=== PATIENT | male | born 1990 | race Hispanic/Latino ===

== ENCOUNTER 2023-09-30 00:38 | Emergency (ER) | payer BC ==
[~2023-09-30] VITALS: Ht 175.3 cm; Wt 80.7 kg
[2023-09-30] MEDS: 0.9%NACL 1000ML 1,000 ML IV ONE (00:50)
[2023-09-30] MEDS: ONDANSETRON 4MG INJ IVP ONE (00:50)
[2023-09-30] MEDS: KETOROLAC 30MG VIAL (30MG/ML) IVP ONE (00:51)
[2023-09-30 01:13] LABS: BASOPHILS # (AUTO) 0.06 K/uL (0.00-0.20); EOSINOPHILS # (AUTO) 0.38 K/uL (0.00-0.70); EOSINOPHILS % (AUTO) 6.1 % (0.0-8.0); IMMATURE GRANULOCYTE ABSOLUTE 0.02 K/uL (0-1); LYMPHOCYTES # (AUTO) 2.7 K/uL (1.0-4.8); LYMPHOCYTES % (AUTO) 43.2 % (21.0-51.0); MEAN CORPUSCULAR HEMOGLOBIN 31.1 pg (27.0-33.0); MEAN CORPUSCULAR VOLUME 94.4 fL (79-99); MONOCYTES # (AUTO) 0.5 K/uL (0.1-1.0); MONOCYTES % (AUTO) 8.1 % (3.0-13.0); NEUTROPHILS # (AUTO) 2.6 K/uL (1.8-7.7); NEUTROPHILS % (AUTO) 41.3 % (40.0-77.0); PLATELET COUNT (AUTO) 269 K/uL (130-400); RED BLOOD CELL COUNT(AUTO) 4.66 MIL/uL (4.50-6.20); RED CELL DISTRIBUTION WIDTH 12.1 % (11.0-15.5); WHITE BLOOD COUNT (AUTO) 6.2 K/uL (4.8-10.8)
[2023-09-30 01:19] LABS: APPEARANCE,URINE CLEAR (CLEAR); BILIRUBIN,URINE NEGATIVE (NEGATIVE); COLOR,URINE LIGHT-YELLOW (YELLOW); GLUCOSE, URINE (UA) NEGATIVE (NEGATIVE); KETONES,URINE NEGATIVE (NEGATIVE); LEUKOCYTE ESTERASE ,URINE NEGATIVE Leu/uL (NEGATIVE); NITRATE,URINE NEGATIVE (NEGATIVE); OCCULT BLOOD,URINE NEGATIVE (NEGATIVE); PROTEIN,URINE NEGATIVE (NEGATIVE); UROBILINOGEN,URINE 0.2 mg/dL (0.2-1.0)
[2023-09-30 01:21] LABS: ADD UA MICROSCOPIC NO
[2023-09-30 01:26] LABS: AMPHET/METH SCREEN,URINE NEGATIVE (NEGATIVE); BARBITURATE SCREEN, URINE NEGATIVE (NEGATIVE); BENZODIAZEPINES SCREEN,URINE NEGATIVE (NEGATIVE); CANNABINOID SCREEN,URINE NEGATIVE (NEGATIVE); COCAINE SCREEN,URINE NEGATIVE (NEGATIVE); OPIATE SCREEN,URINE NEGATIVE (NEGATIVE); PHENCYCLIDINE SCREEN,URINE NEGATIVE (NEGATIVE)
[2023-09-30 01:28] LABS: CARBON DIOXIDE 31 mmol/L (21-32); CHLORIDE 102 mmol/L (101-111); GLOMERULAR FILTR. RATE CALC 101 mL/min (>90); GLUCOSE,RANDOM 85 mg/dL (70-105); POTASSIUM 3.8 mmol/L (3.5-5.1); SODIUM SERUM 140 mmol/L (136-145); UREA NITROGEN, BLOOD 22 mg/dL (7-18)
[2023-09-30 01:33] LABS: ALANINE AMINOTRANSFERASE 33 U/L (12-78); ALBUMIN 4.1 g/dL (3.5-5.0); ASPARTATE AMINOTRANSFERASE 21 U/L (10-37); BILIRUBIN,TOTAL 0.3 mg/dL (0.2-1.0); TOTAL PROTEIN, SERUM 7.5 g/dL (6.0-8.3)
[2023-09-30 01:37] LABS: ALCOHOL, BLOOD < 3 mg/dL (0-10)
[2023-09-30] MEDS ORDERED: IOHEXOL-350 75 ML VIAL IV ONE (01:51)
[2023-09-30 03:12] VITALS: BP 112/62; PULSE 57; RESP 18; O2SAT 98
[2023-09-30] MEDS ORDERED: LACT1CAP81 PO (03:30)
[2023-09-30] MEDS ORDERED: DSSL PO (03:30)
== END 2023-09-30 04:11 | disposition home or self-care (01) ==
LOC: EDH 00:38
DX: R10.84 Generalized abdominal pain (principal); Z90.49 Acquired absence of other specified parts of digestive tract; Z79.899 Other long term (current) drug therapy
CPT/HCPCS: 99284; 74177; 96374; 96375; 80053; 80305; 83690; 85025; 36415; 81003; J2405; J1885; Q9967

== ENCOUNTER 2024-05-02 12:12 | Emergency (ER) | payer BC ==
[~2024-05-02] VITALS: Ht 175.3 cm; Wt 76.2 kg
[~2024-05-02 12:12] MED LIST: DSSL PO; LACT1CAP81 PO
[2024-05-02 12:14] VITALS: BP 126/77; PULSE 50; RESP 18; TEMP 97.3
[2024-05-02 12:32] LABS: BASOPHILS # (AUTO) 0.04 K/uL (0.00-0.20); BASOPHILS % (AUTO) 0.9 % (0.0-5.0); EOSINOPHILS # (AUTO) 0.31 K/uL (0.00-0.70); IMMATURE GRANULOCYTE ABSOLUTE 0.01 K/uL (0-1); LYMPHOCYTES # (AUTO) 1.5 K/uL (1.0-4.8); MEAN CORPUSCULAR HEMOGLOBIN 30.8 pg (27.0-33.0); MEAN CORPUSCULAR HGB CONC 33.6 g/dL (32.0-36.0); MEAN CORPUSCULAR VOLUME 91.7 fL (79-99); MONOCYTES # (AUTO) 0.4 K/uL (0.1-1.0); MONOCYTES % (AUTO) 8.1 % (3.0-13.0); NEUTROPHILS # (AUTO) 2.2 K/uL (1.8-7.7); NEUTROPHILS % (AUTO) 49.8 % (40.0-77.0); PLATELET COUNT (AUTO) 241 K/uL (130-400); WHITE BLOOD COUNT (AUTO) 4.4 K/uL (4.8-10.8)
[2024-05-02 12:47] LABS: CREATININE 0.9 mg/dL (0.5-1.3); POTASSIUM 3.8 mmol/L (3.5-5.1)
[2024-05-02 13:09] LABS: APPEARANCE,URINE CLEAR (CLEAR); BILIRUBIN,URINE NEGATIVE (NEGATIVE); COLOR,URINE LIGHT-YELLOW (YELLOW); GLUCOSE, URINE (UA) NEGATIVE (NEGATIVE); KETONES,URINE 5 mg/dL (NEGATIVE); LEUKOCYTE ESTERASE ,URINE NEGATIVE Leu/uL (NEGATIVE); NITRATE,URINE NEGATIVE (NEGATIVE); OCCULT BLOOD,URINE NEGATIVE (NEGATIVE); PH,URINE 6.5 (5.0-8.0); PROTEIN,URINE NEGATIVE (NEGATIVE); UROBILINOGEN,URINE 0.2 mg/dL (0.2-1.0)
[2024-05-02 13:10] LABS: ADD UA MICROSCOPIC YES
[2024-05-02 13:12] LABS: MUCUS,URINE RARE LPF (None Seen); RBC,URINE 0-1 /HPF (0-1); WBC,URINE 0-1 /HPF (0-1)
[2024-05-02] MEDS ORDERED: IOHEXOL-350 75 ML VIAL IV ONE (13:13)
[2024-05-02] MEDS: ketOROlac 15MG/ML VIAL (15MG/ML) IV ONE (14:28)
== END 2024-05-02 14:43 | disposition home or self-care (01) ==
LOC: EDH 12:12
DX: R10.31 Right lower quadrant pain (principal); Z90.49 Acquired absence of other specified parts of digestive tract
CPT/HCPCS: 99284; 74177; 80048; 83690; 85025; 81001; 36415; Q9967

== ENCOUNTER 2025-07-19 21:24 | Observation (INO) | payer BC ==
[~2025-07-19] VITALS: Ht 175.3 cm; Wt 78.0 kg
--- NOTE | 2025-07-19 21:26 | NUR ---
UA CUP PROVIDED
--- NOTE | 2025-07-19 21:26 | NUR ---
COVID AND FLU SWABS COLLECTED AND SENT
--- NOTE | 2025-07-19 21:39 | ERN ---
ED Note History of Present Illness Stated Complaint: ABD PAIN, V/D Chief Complaint: Abdominal Pain Time Seen by MD: 21:25 Dictation: This is a 34-year-old male who presented to the emergency room with complaints of generalized abdominal pain vomitings and diarrhea that started today. Apparently patient had 2 episodes of loose stool and also emesis mostly gastric contents and clear juices. No hematemesis or melena. He denied any fever chills or rigors. No other family members are sick. He has had similar abdominal pain a year ago at which time CT scan of the abdomen and pelvis was done which was essentially unremarkable. 4 years ago, patient had similar symptoms at which time he had dilated small bowel loops and he was told he had SBO and he needed to be admitted to the hospital but patient was not convinced and left home however he recovered. Last night he ate hot dogs and then he began having symptoms today and has not eaten anything. He does recall that he had a colonoscopy and was told it was normal but does not recall all the details Temperature 97 pulse 89 respirations 20 blood pressure 140/77 with a pulse oximetry of 99% on room air Allergies: Coded Allergies: No Known Drug Allergies (Unverified Allergy, Unknown, 09/30/23) Home Meds Active Scripts Lactobacillus Combination No.4 (Probiotic) 3 Billion Cell Capsule, 1 EACH PO DAILY, #30 CAP Prov:RAN CID MD 09/30/23 Docusate Sodium (Colace Liquid 100Mg/10Ml) 50 Mg/5 Ml Liq, 150 MG PO Q12H, #300 ML Prov:RAN CID MD 09/30/23 Past Medical History Past Medical History: No Pertinent History Additional Past Medical Hx: SBO Surgical History: Cholecystectomy Family History: Negative RN Note Reviewed/Agreed w/PFSH: Yes Review of System Dictation Constitutional: Negative for fever,chills, and weight loss Eyes: Negative for injury, pain,redness, and discharge ENT: Negative for injury,pain or swelling Cardiovascular: Negative for chest pain, palpitations, and edema Respiratory: Negative for shortness of breath, cough, and wheezing, Abdomen/GI: Positive for abdominal pain, nausea, vomiting, diarrhea, Back: Negative for injury and pain : Negative for injury, bleeding and discharge MS/Extremity: Negative for injury and deformity Skin: Negative for rash, and discoloration Neuro: Negative for headache, weakness, numbness, tingling, and seizure Psych: Negative for suicide ideation, homicidal ideation, and hallucinations Initial Vital Sign VS Vital Signs Date Time Temp Pulse Resp B/P (MAP) Pulse Ox O2 Delivery O2 Flow Rate FiO2 07/19/25 21:25 97.0 89 20 140/77 99 Room Air 07/19/25 21:30 0 21 Physical Exam Dictation General: awake, alert, NAD Head/Face: Normocephalic, atraumatic Eyes: PERRL, EOMI, vision at baseline ENT: oral cavity clear, TMs clear, no signs of infection Neck: Trachea midline, supple, no nuchal rigidity Cardiovascular: RRR, normal S1/S2, No MRGs, no JVD Respiratory: CTAB, no respiratory distress, No rales or wheezes Abdomen: Soft, mild tenderness in the middle of the abdomen, non-distended, normal bowel sounds, no guarding or rebound. Skin: Warm, dry, normal turgor, no rash MS/Extremity: Pulses equal, no cyanosis, neurovascular intact, FROM Neuro: COAx4, GCS 15, strength 5/5, CN 2-12 intact, normal cerebellar exam, normal gait, Psych: Normal behavior, mood, and affect normal Extremities-trace edema without any palpable cords, Homans sign is negative Results (Laboratory/Radiology) Laboratory/Radiology Laboratory Tests Test 07/19/25 21:30 07/19/25 21:34 Urine Color YELLOW (YELLOW) Urine Appearance CLEAR (CLEAR) Urine pH 5.5 (5.0-8.0) Urine Specific [employer] 1.036 (1.001-1.031) Urine Protein 20 mg/dL (NEGATIVE) H Urine Glucose (UA) NEGATIVE mg/dL (NEGATIVE) Urine Ketones 40 mg/dL (NEGATIVE) H Urine Occult Blood NEGATIVE (NEGATIVE) Urine Nitrate NEGATIVE (NEGATIVE) Urine Bilirubin NEGATIVE mg/dL (NEGATIVE) Urine Urobilinogen 0.2 mg/dL (0.2-1.0) Urine Leukocyte Esterase NEGATIVE Madhav/uL Urine RBC 0-1 /HPF (0-1) Urine WBC 2-5 /HPF (0-1) H Urine Bacteria None /HPF (None Seen) Influenza Type A Antigen Negative For Type A Influenza Type B Antigen Negative For Type B SARS-CoV-2, RNA, NAAT NEGATIVE SARS CoV-2 White Blood Count 7.3 K/uL (4.8-10.8) Red Blood Count 4.83 MIL/uL (4.50-6.20) Hemoglobin 14.8 g/dL (14.0-18.0) Hematocrit 44.9 % (42-54) Mean Corpuscular Volume 93.0 fL (79-99) Mean Corpuscular Hemoglobin 30.6 pg (27.0-33.0) Mean Corpuscular Hemoglobin Concent 33.0 g/dL (32.0-36.0) Red Cell Distribution Width 12.2 % (11.0-15.5) Platelet Count 262 K/uL (130-400) Mean Platelet Volume 10.3 fL (7.5-10.5) Immature Granulocyte % (Auto) 0.4 % (0-1) Neutrophils (%) (Auto) 84.8 % (40.0-77.0) H Lymphocytes (%) (Auto) 6.0 % (21.0-51.0) L Monocytes (%) (Auto) 7.9 % (3.0-13.0) Eosinophils (%) (Auto) 0.8 % (0.0-8.0) Basophils (%) (Auto) 0.1 % (0.0-5.0) Neutrophils # (Auto) 6.2 K/uL (1.8-7.7) Lymphocytes # (Auto) 0.4 K/uL (1.0-4.8) L Monocytes # (Auto) 0.6 K/uL (0.1-1.0) Eosinophils # (Auto) 0.06 K/uL (0.00-0.70) Basophils # (Auto) 0.01 K/uL (0.00-0.20) Absolute Immature Granulocyte (auto 0.03 K/uL (0-1) Nucleated Red Blood Cells 0.0 % (0.0-0.19) White Cell Morphology Comment See comments Sodium Level 141 mmol/L (136-145) Potassium Level 3.9 mmol/L (3.5-5.1) Chloride Level 104 mmol/L (101-111) Carbon Dioxide Level 28 mmol/L (21-32) Blood Urea Nitrogen 19 mg/dL (7-18) H Creatinine 1.1 mg/dL (0.5-1.3) Glomerular Filtration Rate Calc 90 mL/min (>90) Random Glucose 103 mg/dL (70-105) Total Calcium 8.4 mg/dL (8.5-10.1) L Lipase 29 U/L (16-77) Labs Reviewed?: Yes CT Scan Comment: REASON: ABD PAIN; HX OF SBO ORDERING PHYSICIAN: SHAUN CABEZAS MD PROCEDURE: ABD PEL WO - CT ABDOMEN/PELVIS W/O CONTRAST EXAM: CT Abdomen and Pelvis without IV contrast CLINICAL HISTORY: Abdominal pain. History of small bowel obstruction. TECHNIQUE: Thin collimated axial CT images of the abdomen and pelvis were obtained, with sagittal and coronal reformatted images also submitted. A CT scan is done according to ALARA (As Low As Reasonably Achievable). CONTRAST: None. COMPARISON: CT abdominal pelvis dated 05/02/2024. FINDINGS: The included lungs are clear. Status post cholecystectomy. No focal abnormality within the liver, pancreas, spleen, adrenals, or kidneys. The urinary bladder is suboptimally distended and grossly unremarkable. The prostate is within normal limits. Mildly dilated and fluid-filled small bowel loops measuring up to 3 cm in diameter; no obvious zone of transition is evident. The large bowel loops are normal in caliber with trace fluid and fecal contents within. Remarkable appendix. Limited evaluation of the abdominal vessels due to the lack of intravenous contrast. No abdominal aortic aneurysm is evident. No pathologic lymphadenopathy in the abdomen or pelvis. No ascites or pneumoperitoneum. No acute bony abnormality is evident. Mild degenerative osseous changes. Tiny, uncomplicated, fat-containing umbilical hernia. IMPRESSIONS: Mildly dilated and fluid-filled small bowel loops measuring up to 3 cm in diameter; no obvious zone of transition is evident. The large bowel loops are normal in caliber with trace fluid and fecal contents within. The differentials could be mild acute enteritis or ileus; the possibility of early changes of small bowel obstruction cannot be excluded at this time. Further evaluation with a barium follow-through study may be done if there is a clinical suspicion of bowel obstruction. No pneumatosis or bowel perforation is evident. Compared to the previous CT abdomen and pelvis dated 05/02/2024, there is interval dilatation of the small bowel loops. /[place] DICTATED BY: NATAN DAVILA Jr., MD DATE: 07/20/25211 ELECTRONICALLY SIGNED BY: NATAN DAVILA Jr., MD DATE: 07/20/25211 ED Course ED Course Orders Procedure Category Date Status Time Vital Signs Per CPOE 07/19/25 Transmitted Routine : Cbc With Differential LAB 07/19/25 Complete : Lipase LAB 07/19/25 Complete : Urinalysis Profile LAB 07/19/25 Complete : Basic Metabolic Panel LAB 07/19/25 Complete 21: Covid Rna Naat LAB 07/19/25 Complete 21: Influenza Type A & B, LAB 07/19/25 Complete Rapid 21: Ketorolac PHA 07/19/25 Complete Tromethamine 30mg/Ml 22:00 Ondansetron 4mg Inj PHA 07/19/25 Complete (Zofran 4mg Inj) 22:00 Ketorolac 60mg/2ml PHA 07/19/25 Complete (Toradol 60mg/2ml) 22:30 Ondansetron Odt 4mg PHA 07/19/25 Complete Tab (Zofran 4mg Odt) 22:30 Ct Abdomen/Pelvis W/O CT 07/19/25 Resulted Contrast 23:35 Current Medications Medications (Trade) Dose Ordered Sig/Ronna Route PRN Reason Start Time Stop Time Status Last Admin Dose Admin Ketorolac Tromethamine (toRADol 60MG/ 2ML) 30 mg ONCE ONCE IM 07/19/25 22:30 07/19/25 22:31 DC 07/19/25 22:24 Ketorolac Tromethamine (toRADol) 30 mg ONCE ONCE IVP 07/19/25 22:00 07/19/25 22:18 DC Ondansetron HCl (zoFRAN 4MG INJ) 4 mg ONCE ONCE IVP 07/19/25 22:00 07/19/25 22:18 DC Ondansetron HCl (zoFRAN 4MG ODT) 4 mg ONCE ONCE SL 07/19/25 22:30 07/19/25 22:31 DC 07/19/25 22:24 Vital Signs Date Time Temp Pulse Resp B/P (MAP) Pulse Ox O2 Delivery O2 Flow Rate FiO2 07/19/25 21:30 97.0 89 20 140/77 99 Room Air* 0 21 07/19/25 21:25 97.0 89 20 140/77 99 Room Air Medical Decision Making MDM Differential diagnosis-Renal colic, biliary colic Gastritis, esophagitis, gastroesophageal reflux disease, acute cholecystitis, peptic ulcer disease, gastroenteritis, colitis, constipation, pancreatitis, diverticulitis, appendicitis This is a 34-year-old male who presented to the emergency room with complaints of generalized abdominal pain vomitings and diarrhea that started today. Apparently patient had 2 episodes of loose stool and also emesis mostly gastric contents and clear juices. No hematemesis or melena. He denied any fever chills or rigors. No other family members are sick. He has had similar abdom inal pain a year ago at which time CT scan of the abdomen and pelvis was done which was essentially unremarkable. 4 years ago, patient had similar symptoms at which time he had dilated small bowel loops and he was told he had SBO and he needed to be admitted to the hospital but patient was not convinced and left home however he recovered. Last night he ate hot dogs and then he began having symptoms today and has not eaten anything. He does recall that he had a colonoscopy and was told it was normal but does not recall all the details Temperature 97 pulse 89 respirations 20 blood pressure 140/77 with a pulse oximetry of 99% on room air 10:00 p.m. labs reviewed CBC is with a normal limits BNP 7 is normal lipase is 29 BUN and creatinine are 19 and 1.1. Urinalysis showed some ketones but no evidence of any UTI. 11:[address] scan of the abdomen and pelvis requested as patient has had multiple episodes of abdominal symptoms and a previous history of small-bowel obstruction I had a long discussion with the patient and recommended admission to the hospital due to recurrent small-bowel obstruction and also additional evaluations including small-bowel follow-through perhaps even a GI evaluation. Gentle hydration to continue and if he has a any further loose stool to consider stool studies. Patient denied travel to any endemic areas of parasitic infections. 1:50 a.m. patient accepted by [facility] mid-level provider for hospitalist group for admission and further management Rationale: Tests considered and ordered secondary to shared decision making include: labs, ECG and radiology Previous outside records reviewed: Old ER visits. Risk of complication and/or morbidity or mortality of patient management: None Medications-Per medication reconciliation Need for hospitalization: Patient does meet criteria for hospitalization. Need for emergency major/minor surgery: No There are no social concerns with this patient. Prescription drug management Prescriptions will include symptomatic care Patient's prior external medical records from other ER visits were reviewed by me as indicated. Prior testing and results from previous visits were reviewed. Prior tests were taken into account with medical decision making and resource utilization, independent historian/historians were used to obtain complete medical history. I independently interpreted the test that were performed, results were reviewed by me and considered findings on radiology if ordered. Medical management and examination interpretation discussions were had by me with other qualified healthcare professionals as indicated for the patient's care. Problem List Problem List: (1) Small bowel obstruction (2) Enteritis (3) Volume depletion (4) Acute kidney injury DX & DISP Disposition: Inpatient Decision to Admit Time: 01:46 Departure Impression: Primary Impression: Small bowel obstruction Additional Impressions: Enteritis, Volume depletion, Acute kidney injury Condition: Stable Additional Instructions: Patient was informed of all the diagnostic labs and procedures conducted in the emergency room today and demonstrated understanding of the results. I personally reviewed and interpreted all the diagnostic exams performed in the ER today. The patient will be admitted to the hospital for further treatment and evaluation. Disposition-admit to facility Condition-stable/guarded Course-uncertain at this time Pain status-decreased Assessment-exam unchanged Admission Certification- I certify that the patients status is appropriate and is based on my best clinical judgment and the patient's condition as documented in the medical records Referrals: SELF,REFERRAL (PCP) SHAUN CABEZAS MD Jul 19, 2025 21:39
[2025-07-19 21:40] LABS: ADD UA MICROSCOPIC YES; APPEARANCE,URINE CLEAR (CLEAR); GLUCOSE, URINE (UA) NEGATIVE (NEGATIVE); LEUKOCYTE ESTERASE ,URINE NEGATIVE Leu/uL (NEGATIVE); NITRATE,URINE NEGATIVE (NEGATIVE); OCCULT BLOOD,URINE NEGATIVE (NEGATIVE)
[2025-07-19 21:42] LABS: IMMATURE GRANULOCYTE ABSOLUTE 0.03 K/uL (0-1); NUCLEATED RED BLOOD CELLS 0.0 % (0.0-0.19); PLATELET COUNT (AUTO) 262 K/uL (130-400); RED BLOOD CELL COUNT(AUTO) 4.83 MIL/uL (4.50-6.20); RED CELL DISTRIBUTION WIDTH 12.2 % (11.0-15.5); WHITE BLOOD COUNT (AUTO) 7.3 K/uL (4.8-10.8)
[2025-07-19 21:49] LABS: CREATININE 1.1 mg/dL (0.5-1.3); GLOMERULAR FILTR. RATE CALC 90.0 mL/min (>90); GLUCOSE,RANDOM 103.0 mg/dL (70-105); SODIUM SERUM 141.0 mmol/L (136-145); UREA NITROGEN, BLOOD 19.0 mg/dL (7-18)
[2025-07-19 21:54] LABS: SARS-CoV-2, RNA, NAAT NEGATIVE SARS CoV-2 (NEGATIVE)
[2025-07-19 21:58] LABS: INFLUENZA TYPE A Negative For Type A (NEGATIVE); INFLUENZA TYPE B Negative For Type B (NEGATIVE)
--- NOTE | 2025-07-20 01:14 | HMCIMG ---
EXAM: CT Abdomen and Pelvis without IV contrast CLINICAL HISTORY: Abdominal pain. History of small bowel obstruction. TECHNIQUE: Thin collimated axial CT images of the abdomen and pelvis were obtained, with sagittal and coronal reformatted images also submitted. A CT scan is done according to ALARA (As Low As Reasonably Achievable). CONTRAST: None. COMPARISON: CT abdominal pelvis dated 05/02/2024. FINDINGS: The included lungs are clear. Status post cholecystectomy. No focal abnormality within the liver, pancreas, spleen, adrenals, or kidneys. The urinary bladder is suboptimally distended and grossly unremarkable. The prostate is within normal limits. Mildly dilated and fluid-filled small bowel loops measuring up to 3 cm in diameter; no obvious zone of transition is evident. The large bowel loops are normal in caliber with trace fluid and fecal contents within. Remarkable appendix. Limited evaluation of the abdominal vessels due to the lack of intravenous contrast. No abdominal aortic aneurysm is evident. No pathologic lymphadenopathy in the abdomen or pelvis. No ascites or pneumoperitoneum. No acute bony abnormality is evident. Mild degenerative osseous changes. Tiny, uncomplicated, fat-containing umbilical hernia. IMPRESSIONS: Mildly dilated and fluid-filled small bowel loops measuring up to 3 cm in diameter; no obvious zone of transition is evident. The large bowel loops are normal in caliber with trace fluid and fecal contents within. The differentials could be mild acute enteritis or ileus; the possibility of early changes of small bowel obstruction cannot be excluded at this time. Further evaluation with a barium follow-through study may be done if there is a clinical suspicion of bowel obstruction. No pneumatosis or bowel perforation is evident. Compared to the previous CT abdomen and pelvis dated 05/02/2024, there is interval dilatation of the small bowel loops. /April
[2025-07-20] MEDS: 0.9%NACL 1000ML 1,000 ML IV ONE (02:09)
--- NOTE | 2025-07-20 03:04 | HP ---
[facility] HISTORY AND PHYSICAL Date of Service: Jul 20, 2025 Time of Service: 02:29 PCP: Self Referral HISTORY OF PRESENT ILLNESS: This is a 34 year old male with no pertinent medical history with past surgical history of cholecystectomy who presents to the ED for complaints of generalized abdominal pain,vomiting and diarrhea which started yesterday.Patient reports after waking up today he had ground beef,rice and beans and 1 hour after his meal he started throwing up x 2 episodes and having bouts of non bloody diarrhea x 6 episodes and he also reports having cramplike abdominal pain.Patient states 4 year ago he had similar episode and had to go to a hospital where a CT scan was done and was told he had an obstruction but was resolved he said.Patient also states he had a colonoscopy done 1 year ago and was told it was normal. Seen and examined patient in the ER awake,alert and coherent,appears comfortable.Patient denies fever,chills,hematemesis,bloody stool,chest pain,palpitation and shortness of breath.Patient denies sick contact and recent travel.Latest V/S T97,HR 89,BP 140/77 Sat 99% RA.Labs : Neutrophils 84 lymphocytes 6.0 otherwise unremarkable CBC.BUN 19 Total calcium 8.4,otherwise normal BMP result.Influenza type A and B negative,Sars Covid negative. On arrival tot he ED patient had a CT scan of abdomen and pelvis without contrast and result revealed mildly dilated and fluid-filled small bowel loops measuring up to 3 cm in diameter, no obvious zone of transition is evident. The large bowel loops are normal in caliber with trace fluid and fecal contents within. The differentials could be mild acute enteritis or ileus the possibility of early changes of small-bowel obstruction can not be excluded at this time. Further evaluation with a barium follow-through study may be done if there is clinical suspicion of bowel obstruction. No pneumatosis or bowel perforation is evident. Compared to the previous CT abdomen and pelvis dated 05/02/2024, there is interval dilatation of the small bowel loops.While in the ER patient received Toradol 30 mg IV,Zofran 4 mg IV, and NS @125ml/hr.Will admit patient for further medical management. REVIEW OF SYSTEMS CONSTITUTIONAL: Denies fevers, chills, or night sweats. No unintentional weight loss reported. NEUROLOGICAL: Denies headache, amaurosis fugax, motor weakness, sensory deficit, vertigo/spinning sensation, gait abnormalities, or tremors. ENT: No hearing loss, otalgia, otorrhea, rhinitis, rhinorrhea, hoarseness, or sore throat. CARDIOVASCULAR: Denies any exertional angina, dyspnea on exertion, orthopnea, paroxysmal nocturnal dyspnea, palpitations, life-threatening arrhythmias, claudication. PULMONARY: Denies any shortness of breath, cough, phlegm/sputum, hemoptysis, pleuritic chest pain. SLEEP: Denies morning headaches, daytime somnolence or napping. Denies difficulty falling asleep, staying asleep, waking from sleep. Denies knowledge of snoring. GASTROINTESTINAL:+abdominal pain,nausea,vomiting and diarrhea Denies any type of dysphagia to either liquids or solids. Denies pyrosis, early satiety, constipation, or changes in stool consistency or caliber. Denies coffee-ground emesis, hematemesis, hematochezia, or melanotic stools. GENITOURINARY: Denies frequency, urgency, nocturia, hematuria or incontinence (Storage/Irritative symptoms.) Low urinary stream, straining to void, urinary intermittency or hesitancy, splitting of the voiding stream, terminal dribbling. ENDOCRINOLOGIC: Denies polyuria, polydipsia, polyphagia or heat/cold intolerances. HEMATOLOGIC: Denies thrombophilia/previous clots, or coagulopathy/bleeding disorders. ONCOLOGIC: Denies personal history of malignancy. DERMATOLOGIC: Denies rashes or pruritus. PSYCHIATRIC: Denies any suicidal or homicidal ideation. Denies hallucinations. PAST MEDICAL HISTORY: [ Patient denies ] PAST SURGICAL HISTORY: [colonoscopy 2023 Cholecystectomy 2018 ] PAST SOCIAL HISTORY: [ Patient lives with .Patient denies cigarette and recreational drug use.Patient admits to drinking 10 beers per month ] FAMILY HISTORY: [Noncontributory ] Coded Allergies: No Known Drug Allergies (Unverified Allergy, Unknown, 09/30/23) PHYSICAL EXAM GENERAL APPEARANCE: The patient is awake, alert, and oriented, in no acute cardiopulmonary distress. NEUROLOGICAL: Cranial nerves II-XII grossly intact. Motor is 5/5 in bilateral upper and lower extremities proximal to distal. No sensory deficits. HEENT: Face is symmetric. Pupils are equal and reactive. Extraocular movements are intact. NECK: Supple. No JVD. No thyromegaly. No submental, submandibular, pre- /postauricular, occipital or supraclavicular lymphadenopathy. CHEST: Normal chest expansion. No Telemetry. LUNGS: Absence of any rales, rhonchi or any wheezing. CARDIOVASCULAR: Regular. S1 and S2 normal. No appreciable rubs, murmurs or gallops. ABDOMEN: + tenderness around epigastric area Soft and nondistended. There is no rebound, voluntary guarding, or rigidity. : Deferred. No Lo. EXTREMITIES: Non-edematous and not cyanotic. No clubbing. Good capillary refill. SKIN: No skin breakdown. Vital Sign (Last 24 Hours) 07/19/25 21:30 Temp 97.0 Pulse 89 Resp 20 B/P (MAP) 140/77 Pulse Ox 99 O2 Delivery Room Air* O2 Flow Rate 0 FiO2 21 LABS: Laboratory: Test 07/19/25 21:34 07/19/25 21:30 Range/Units White Blood Count 7.3 4.8-10.8 K/uL Red Blood Count 4.83 4.50-6.20 MIL/uL Hemoglobin 14.8 14.0-18.0 g/dL Hematocrit 44.9 42-54 % Mean Corpuscular Volume 93.0 79-99 fL Mean Corpuscular Hemoglobin 30.6 27.0-33.0 pg Mean Corpuscular Hemoglobin Concent 33.0 32.0-36.0 g/dL Red Cell Distribution Width 12.2 11.0-15.5 % Platelet Count 262 130-400 K/uL Mean Platelet Volume 10.3 7.5-10.5 fL Immature Granulocyte % (Auto) 0.4 0-1 % Neutrophils (%) (Auto) 84.8 H 40.0-77.0 % Lymphocytes (%) (Auto) 6.0 L 21.0-51.0 % Monocytes (%) (Auto) 7.9 3.0-13.0 % Eosinophils (%) (Auto) 0.8 0.0-8.0 % Basophils (%) (Auto) 0.1 0.0-5.0 % Neutrophils # (Auto) 6.2 1.8-7.7 K/uL Lymphocytes # (Auto) 0.4 L 1.0-4.8 K/uL Monocytes # (Auto) 0.6 0.1-1.0 K/uL Eosinophils # (Auto) 0.06 0.00-0.70 K/uL Basophils # (Auto) 0.01 0.00-0.20 K/uL Absolute Immature Granulocyte (auto 0.03 0-1 K/uL Nucleated Red Blood Cells 0.0 0.0-0.19 % White Cell Morphology Comment See comments Sodium Level 141 136-145 mmol/L Potassium Level 3.9 3.5-5.1 mmol/L Chloride Level 104 101-111 mmol/L Carbon Dioxide Level 28 21-32 mmol/L Blood Urea Nitrogen 19 H 7-18 mg/dL Creatinine 1.1 0.5-1.3 mg/dL Glomerular Filtration Rate Calc 90 >90 mL/min Random Glucose 103 70-105 mg/dL Total Calcium 8.4 L 8.5-10.1 mg/dL Lipase 29 16-77 U/L Urine Color YELLOW YELLOW Urine Appearance CLEAR CLEAR Urine pH 5.5 5.0-8.0 Urine Specific [place] 1.036 H 1.001-1.031 Urine Protein 20 H NEGATIVE mg/dL Urine Glucose (UA) NEGATIVE NEGATIVE mg/dL Urine Ketones 40 H NEGATIVE mg/dL Urine Occult Blood NEGATIVE NEGATIVE Urine Nitrate NEGATIVE NEGATIVE Urine Bilirubin NEGATIVE NEGATIVE mg/dL Urine Urobilinogen 0.2 0.2-1.0 mg/dL Urine Leukocyte Esterase NEGATIVE NEGATIVE Madhav/uL Urine RBC 0-1 0-1 /HPF Urine WBC 2-5 H 0-1 /HPF Urine Bacteria None None Seen /HPF Influenza Type A Antigen Negative For Type A NEGATIVE Influenza Type B Antigen Negative For Type B NEGATIVE SARS-CoV-2, RNA, NAAT NEGATIVE SARS CoV-2 NEGATIVE DIAGNOSTICS / RADIOLOGY: [ ] ASSESSMENT: R/O Small bowel obstruction POA Acute non infectious gastroenteritis with reactive ileus POA Possible dehydration POA PLAN: We will admit patient in medical surgical We will keep nothing by mouth We will start LR @ 100 ml / hr x2 bags and re evaluate We will start on Famotidine 20mg IV bid for GI prophylaxis We will replace electrolytes as needed per protocol We will add prn medication for fever,pain,cough , nausea and vomiting We will obtain GI stool panel We will seek General surgery consultation We will request labs in am Further orders to follow depending on above results Case discussed with attending physician and came up with above treatment and plan of care. ADVANCED CARE PLANNING 1. Which of the following were discussed? Hospice Care - No Therapeutic options - Yes Advance Directives - No Other discussions - 2. Discussed with who? Patient 3. Voluntary nature of this service was explained to the patient? Yes 4. Amount of time spent - _23 min 5. Reviewed by Physician? (if this service was performed by NPP) Yes Patient seen and examined by me. Agree with note by AUDITOR IN CHARGE SEE ADDITIONAL ORDERS PER CHART DISCUSSED WITH NURSING STAFF MAKSIM BRUCE BOBBIN HANDLER Jul 20, 2025 03:04
[2025-07-20 03:05] VITALS: O2SAT 100
[2025-07-20 04:25] VITALS: BP 136/85; PULSE 59; RESP 16; TEMP 98.1
[2025-07-20] MEDS: LACTATED RINGERS 1000ML 1,000 ML IV SCH (04:57)
[2025-07-20 05:31] LABS: IMMATURE GRANULOCYTE ABSOLUTE 0.02 K/uL (0-1); NUCLEATED RED BLOOD CELLS 0.0 % (0.0-0.19); PLATELET COUNT (AUTO) 230 K/uL (130-400); RED BLOOD CELL COUNT(AUTO) 4.60 MIL/uL (4.50-6.20); RED CELL DISTRIBUTION WIDTH 12.3 % (11.0-15.5); WHITE BLOOD COUNT (AUTO) 5.6 K/uL (4.8-10.8)
[2025-07-20 05:47] LABS: ASPARTATE AMINOTRANSFERASE 24.0 U/L (10-37); CREATININE 1.1 mg/dL (0.5-1.3); GLOMERULAR FILTR. RATE CALC 90.0 mL/min (>90); GLUCOSE,RANDOM 92.0 mg/dL (70-105); SODIUM SERUM 142.0 mmol/L (136-145); TOTAL PROTEIN, SERUM 7.0 g/dL (6.0-8.3); UREA NITROGEN, BLOOD 22.0 mg/dL (7-18)
--- NOTE | 2025-07-20 07:10 | NUR ---
ADMISSION PATIENT ARRIVED TO ROOM 323 VIA STRETCHER, PATIENT AMBULATED TO BED WITHOUT DIFFICULTY. DENIES PAIN AT THIS TIME. PLAN OF CARE REVIEWED WITH PATIENT. ORIENTED PATIENT TO ROOM, CALL BUTTON, REMOTE CONTROL, FALL PREVENTION, BED SAFETY, IV SAFETY. NON SKID SOCKS APPLIED, PATIENT REQUESTED TO STAY IN REGULAR CLOTHING FOR COMFORT, REFUSED TO PLACE GOWN. LR INFUSING AT 100ML/HR TO A LEFT AC 18G, FLUSHES WITHOUT DIFFICULTY.
[2025-07-20 08:00] VITALS: BP 112/62; PULSE 58; RESP 20; TEMP 98; O2SAT 94
[2025-07-20] MEDS: FAMOTIDINE 20MG VIAL IV SCH (09:43)
--- NOTE | 2025-07-20 10:04 | PN ---
[facility] PROGRESS NOTE Date of Service: Jul 20, 2025 Time of Service: 10:04 HISTORY OF PRESENT ILLNESS: This is a 34 year old male with no pertinent medical history with past surgical history of cholecystectomy who presents to the ED for complaints of generalized abdominal pain,vomiting and diarrhea which started yesterday.Patient reports after waking up today he had ground beef,rice and beans and 1 hour after his meal he started throwing up x 2 episodes and having bouts of non bloody diarrhea x 6 episodes and he also reports having cramplike abdominal pain.Patient states 4 year ago he had similar episode and had to go to a hospital where a CT scan w as done and was told he had an obstruction but was resolved he said.Patient also states he had a colonoscopy done 1 year ago and was told it was normal. Seen and examined patient in the ER awake,alert and coherent,appears comfortable.Patient denies fever,chills,hematemesis,bloody stool,chest pain,palpitation and shortness of breath.Patient denies sick contact and recent travel.Latest V/S T97,HR 89,BP 140/77 Sat 99% RA.Labs : Neutrophils 84 lymphocytes 6.0 otherwise unremarkable CBC.BUN 19 Total calcium 8.4,otherwise normal BMP result.Influenza type A and B negative,Sars Covid negative. On arrival tot he ED patient had a CT scan of abdomen and pelvis without contrast and result revealed mildly dilated and fluid-filled small bowel loops measuring up to 3 cm in diameter, no obvious zone of transition is evident. The large bowel loops are normal in caliber with trace fluid and fecal contents within. The differentials could be mild acute enteritis or ileus the possibility of early changes of small-bowel obstruction can not be excluded at this time. Further evaluation with a barium follow-through study may be done if there is clinical suspicion of bowel obstruction. No pneumatosis or bowel perforation is evident. Compared to the previous CT abdomen and pelvis dated 05/02/2024, there is interval dilatation of the small bowel loops.While in the ER patient received Toradol 30 mg IV,Zofran 4 mg IV, and NS @125ml/hr.Will admit patient for further medical management. SUBJECTIVE: 07/20/2025: Patient was evaluated at bedside in room 323. At the time of evaluation patient was lying comfortably in the bed and denied any symptoms. Patient admits to 2 episodes of nonbloody nonbilious vomiting that happened yesterday in the afternoon and 1 in the evening approximately an hour after eating meals and the vomit mostly contained undigested food. Patient admits to nausea, mild epigastric abdominal discomfort but no cramping or sharp stabbing pain. Patient also admits to loose stools, 6 episode since yesterday his last bowel movement was 5:00 a.m. this morning. Patient denies fevers, chills, abdominal distention, chest pain, shortness of breath. Patient pending evaluation by General surgery and we will start the patient on clear liquid diet. REVIEW OF SYSTEMS CONSTITUTIONAL: Denies fevers, chills, or night sweats. No unintentional weight loss reported. NEUROLOGICAL: Denies headache, amaurosis fugax, motor weakness, sensory deficit, vertigo/spinning sensation, gait abnormalities, or tremors. ENT: No hearing loss, otalgia, otorrhea, rhinitis, rhinorrhea, hoarseness, or sore throat. CARDIOVASCULAR: Denies any exertional angina, dyspnea on exertion, orthopnea, paroxysmal nocturnal dyspnea, palpitations, life-threatening arrhythmias, claudication. PULMONARY: Denies any shortness of breath, cough, phlegm/sputum, hemoptysis, pleuritic chest pain. GASTROINTESTINAL:+abdominal pain,nausea,vomiting and diarrhea. Denies any type of dysphagia to either liquids or solids. Denies pyrosis, early satiety, constipation. Denies coffee-ground emesis, hematemesis, hematochezia, or melanotic stools. GENITOURINARY: Denies frequency, urgency, nocturia, hematuria or incontinence (Storage/Irritative symptoms.) Low urinary stream, straining to void, urinary intermittency or hesitancy, splitting of the voiding stream, terminal dribbling. PHYSICAL EXAM GENERAL APPEARANCE: The patient is awake, alert, and oriented, in no acute cardiopulmonary distress. NEUROLOGICAL: Cranial nerves II-XII grossly intact. Motor is 5/5 in bilateral upper and lower extremities proximal to distal. No sensory deficits. HEENT: Face is symmetric. Pupils are equal and reactive. Extraocular movements are intact. NECK: Supple. No JVD. No thyromegaly. No submental, submandibular, pre- /postauricular, occipital or supraclavicular lymphadenopathy. CHEST: Normal chest expansion. No Telemetry. LUNGS: Absence of any rales, rhonchi or any wheezing. CARDIOVASCULAR: Regular. S1 and S2 normal. No appreciable rubs, murmurs or gallops. ABDOMEN: + tenderness around epigastric area Soft and nondistended. There is no rebound, voluntary guarding, or rigidity. : Deferred. No Lo. EXTREMITIES: Non-edematous and not cyanotic. No clubbing. Good capillary refill. SKIN: No skin breakdown. Vital Signs (last 8hr) Date Time Temp Pulse Resp B/P (MAP) Pulse Ox O2 Delivery O2 Flow Rate FiO2 07/20/25 08:00 98.1 58 20 112/62 94 Room Air 07/20/25 04:25 98.1 59 16 136/85 97 Room Air 07/20/25 03:05 100 Room Air* 0 21 07/20/25 03:00 98.1 63 22 119/73 97 Room Air* 0 21 LABS: Laboratory: Test 07/20/25 05:27 07/19/25 21:34 07/19/25 21:30 Range/Units White Blood Count 5.6 4.8-10.8 K/uL Red Blood Count 4.60 4.50-6.20 MIL/uL Hemoglobin 14.2 14.0-18.0 g/dL Hematocrit 44.1 42-54 % Mean Corpuscular Volume 95.9 79-99 fL Mean Corpuscular Hemoglobin 30.9 27.0-33.0 pg Mean Corpuscular Hemoglobin Concent 32.2 32.0-36.0 g/dL Red Cell Distribution Width 12.3 11.0-15.5 % Platelet Count 230 130-400 K/uL Mean Platelet Volume 9.9 7.5-10.5 fL Immature Granulocyte % (Auto) 0.4 0-1 % Neutrophils (%) (Auto) 65.4 40.0-77.0 % Lymphocytes (%) (Auto) 19.4 L 21.0-51.0 % Monocytes (%) (Auto) 12.4 3.0-13.0 % Eosinophils (%) (Auto) 2.0 0.0-8.0 % Basophils (%) (Auto) 0.4 0.0-5.0 % Neutrophils # (Auto) 3.6 1.8-7.7 K/uL Lymphocytes # (Auto) 1.1 1.0-4.8 K/uL Monocytes # (Auto) 0.7 0.1-1.0 K/uL Eosinophils # (Auto) 0.11 0.00-0.70 K/uL Basophils # (Auto) 0.02 0.00-0.20 K/uL Absolute Immature Granulocyte (auto 0.02 0-1 K/uL Nucleated Red Blood Cells 0.0 0.0-0.19 % Sodium Level 142 136-145 mmol/L Potassium Level 4.2 3.5-5.1 mmol/L Chloride Level 106 101-111 mmol/L Carbon Dioxide Level 28 21-32 mmol/L Blood Urea Nitrogen 22 H 7-18 mg/dL Creatinine 1.1 0.5-1.3 mg/dL Glomerular Filtration Rate Calc 90 >90 mL/min Random Glucose 92 70-105 mg/dL Total Calcium 8.4 L 8.5-10.1 mg/dL Magnesium Level 2.00 1.80-2.40 mg/dL Total Bilirubin 0.4 0.2-1.0 mg/dL Aspartate Amino Transf (AST/SGOT) 24 10-37 U/L Alanine Aminotransferase (ALT/SGPT) 29 12-78 U/L Alkaline Phosphatase 59 50-136 U/L Total Protein 7.0 6.0-8.3 g/dL Albumin 3.9 3.5-5.0 g/dL White Cell Morphology Comment See comments Lipase 29 16-77 U/L Urine Color YELLOW YELLOW Urine Appearance CLEAR CLEAR Urine pH 5.5 5.0-8.0 Urine Specific [place] 1.036 H 1.001-1.031 Urine Protein 20 H NEGATIVE mg/dL Urine Glucose (UA) NEGATIVE NEGATIVE mg/dL Urine Ketones 40 H NEGATIVE mg/dL Urine Occult Blood NEGATIVE NEGATIVE Urine Nitrate NEGATIVE NEGATIVE Urine Bilirubin NEGATIVE NEGATIVE mg/dL Urine Urobilinogen 0.2 0.2-1.0 mg/dL Urine Leukocyte Esterase NEGATIVE NEGATIVE Madhav/uL Urine RBC 0-1 0-1 /HPF Urine WBC 2-5 H 0-1 /HPF Urine Bacteria None None Seen /HPF Influenza Type A Antigen Negative For Type A NEGATIVE Influenza Type B Antigen Negative For Type B NEGATIVE SARS-CoV-2, RNA, NAAT NEGATIVE SARS CoV-2 NEGATIVE Current Medications Medications (Trade) Dose Ordered Sig/Ronna Route PRN Reason Start Time Stop Time Status Last Admin Dose Admin Famotidine (Pepcid 20mg Vial) 20 mg BID IV 07/20/25 09:00 08/19/25 08:59 07/20/25 09:43 20 MG Lactated Ringer's 1,000 ml @ 100 mls/hr Q10H IV 07/20/25 02:30 08/19/25 02:29 07/20/25 04:57 100 MLS/HR Ondansetron HCl (zoFRAN 4MG INJ) 4 mg Q6H PRN IV NAUSEA/VOMITING 07/20/25 02:30 08/19/25 02:29 DIAGNOSTICS / RADIOLOGY: [ ] PATIENT: VICKIE HUSAIN MR#: [id number] : 1990 SEX: M AGE: 34 LOCATION: [facility] ORDER 35 STATUS: [facility] REPORT#: [id number] SERVICE 34 REASON: ABD PAIN; HX OF SBO ORDERING PHYSICIAN: SHAUN CABEZAS MD PROCEDURE: ABD PEL WO - CT ABDOMEN/PELVIS W/O CONTRAST EXAM: CT Abdomen and Pelvis without IV contrast CLINICAL HISTORY: Abdominal pain. History of small bowel obstruction. TECHNIQUE: Thin collimated axial CT images of the abdomen and pelvis were obtained, with sagittal and coronal reformatted images also submitted. A CT scan is done according to ALARA (As Low As Reasonably Achievable). CONTRAST: None. COMPARISON: CT abdominal pelvis dated 05/02/2024. FINDINGS: The included lungs are clear. Status post cholecystectomy. No focal abnormality within the liver, pancreas, spleen, adrenals, or kidneys. The urinary bladder is suboptimally distended and grossly unremarkable. The prostate is within normal limits. Mildly dilated and fluid-filled small bowel loops measuring up to 3 cm in diameter; no obvious zone of transition is evident. The large bowel loops are normal in caliber with trace fluid and fecal contents within. Remarkable appendix. Limited evaluation of the abdominal vessels due to the lack of intravenous contrast. No abdominal aortic aneurysm is evident. No pathologic lymphadenopathy in the abdomen or pelvis. No ascites or pneumoperitoneum. No acute bony abnormality is evident. Mild degenerative osseous changes. Tiny, uncomplicated, fat-containing umbilical hernia. IMPRESSIONS: Mildly dilated and fluid-filled small bowel loops measuring up to 3 cm in diameter; no obvious zone of transition is evident. The large bowel loops are normal in caliber with trace fluid and fecal contents within. The differentials could be mild acute enteritis or ileus; the possibility of early changes of small bowel obstruction cannot be excluded at this time. Further evaluation with a barium follow-through study may be done if there is a clinical suspicion of bowel obstruction. No pneumatosis or bowel perforation is evident. Compared to the previous CT abdomen and pelvis dated 05/02/2024, there is interval dilatation of the small bowel loops. /[place] DICTATED BY: NATAN DAVILA Jr., MD DATE: 07/20/25211 ELECTRONICALLY SIGNED BY: NATAN DAVILA Jr., MD DATE: 07/20/25211 ASSESSMENT: R/O Small bowel obstruction POA Acute non infectious gastroenteritis POA Acute mild dehydration POA History of laparoscopic cholecystectomy in 2018 PLAN: R/O Small bowel obstruction POA * Patient has 6 episodes of nonbloody diarrhea and nonbilious vomiting in the last 24 hours * CT abdomen showed mildly dilated and fluid-filled small bowel loops measuring 3 cm in diameter without an obvious zone of transition. * Patient has positive bowel sounds and is passing gas and has diarrhea making acute gastroenteritis more likely compared to small bowel obstruction * Start patient on clear liquid diet and continue IV hydration with normal saline 125 mL/hour * Consulted General surgery and awaiting their recommendations Acute noninfectious gastroenteritis POA * Patient presents with abdominal discomfort, 6 episodes of nonbloody diarrhea in 24 hours and nausea and nonbilious vomiting since 1 day * Ordered stool panel by PCR results pending * Continue clear liquid diet and IV hydration with normal saline * PRN ondansetron for nausea * Continue IV famotidine 20 mg b.i.d. ATTESTATION BY PHYSICIAN I have seen and examined the patient. I reviewed the documentation, medical decision making, and treatment plan as noted by the resident physician above. I agree with the findings and plan of care. GONZALEZ SPAIN MD, HARSHAVARDHA MD Jul 20, 2025 10:04
--- NOTE | 2025-07-20 10:18 | NUR ---
DCP:HOME Pt currently lives at home with his and son. Pt denies any DME, home health, or provider services. Pt states that he can complete ADLs independently. PCP is Dr. Castano (from [place]) and uses [facility] for any RX needs. At DC pt will want to go home and family can assist with transportation.
[2025-07-20 12:00] VITALS: BP 106/63; PULSE 52; RESP 20; TEMP 98.1
--- NOTE | 2025-07-20 15:50 | CONS ---
CONSULT NOTE: Consulting physician:Dr Koehler Consulting service: General surgery Reason for consultation: Small bowel obstruction History of present illness: This is a 29-year-old with a medical history listed below that has been c onsulted to surgery after presenting to the hospital with generalized abdominal pain nausea and vomiting that began yesterday. Patient had reported significant cramp like sensation with similar episodes over the last four years. Patient underwent colonoscopy one year prior with no acute findings. Upon initial workup imaging performed and concerns for small bowel obstruction versus enteritis noted and surgical team consulted. At time of exam patient resting comfortably in room currently NPO. No abdominal pain reported. Patient has multiple bowel movements and flatus. No nausea or vomiting reported at this time Medical history: Surgical history: Cholecystectomy Review of systems: General: No Fever, No Chills, No Night Sweats, No Fatigue, No Malaise, No Appetite, No Other HEENT: No Head Aches, No Visual Changes, No Eye Pain, No Ear Pain, No Dysphasia, No Sinus Congestion, No Post Nasal Drip, No Sore Throat, No Other Pulmonary: No Dyspnea, No Cough, No Pleuritic Chest Pain, No Other Cardiovascular: No: Chest Pain, Palpitations, Orthopnea, Paroxysmal No Dyspnea, Edema, Lt Headedness, Other Gastrointestinal: No: Nausea, Vomiting, Diarrhea, Constipation, Melena, Hematochezia, Other Genitourinary: No Dysuria, No Frequency, No Incontinence, No Hematuria, No Retention, No Other Musculoskeletal: No: other, neck pain, shoulder pain, arm pain, back pain, hand pain, leg pain, foot pain Skin: No Urticaria, No Rash, No Other Neurological: No: Weakness, Numbness, Incoordination, Change in speech, Confusion, Seizures, Other Physical exam: General: Awake alert and oriented Heart: Regular rate and rhythm} Lungs: Clear to auscultation no distress Abdomen: [Soft, nontender, nondistended Assessment: This is a 34-year-old male with likely enteritis versus obstruction Plan: From surgical standpoint patient can be started on clear liquid diet and advanced as tolerated No immediate plans for surgical intervention Possible repeat KUB tomorrow if distention noted after commencement of diet Dr Guevara to be updated in patient's status and surgical team to be updated with any further acute events Surgical case has been discussed with my supervising physician in the above plan was formulated and agreed upon Supervising physicians evaluation the patient be done within next 24 hours We appreciate the hospitalist team for us to participate in patient's care. Greater than 55 minutes of time spent patient, reviewing chart, working on documentation ASIF THOMPSON Jr. PAC Jul 20, 2025 15:50
[2025-07-20 16:00] VITALS: BP 106/68; PULSE 50; RESP 20; TEMP 97.7
[2025-07-20 20:00] VITALS: BP 115/67; PULSE 58; RESP 20; TEMP 98.1
[2025-07-21 00:02] VITALS: BP 127/76; PULSE 51; RESP 16; TEMP 98.4
[2025-07-21 04:00] VITALS: BP 118/75; PULSE 55; RESP 16; TEMP 97.6
[2025-07-21 05:59] LABS: NUCLEATED RED BLOOD CELLS 0.0 % (0.0-0.19); PLATELET COUNT (AUTO) 212.0 K/uL (130-400); RED BLOOD CELL COUNT(AUTO) 4.32 MIL/uL (4.50-6.20); RED CELL DISTRIBUTION WIDTH 12.1 % (11.0-15.5); WHITE BLOOD COUNT (AUTO) 4.3 K/uL (4.8-10.8)
[2025-07-21 06:14] LABS: CREATININE 1.0 mg/dL (0.5-1.3); GLOMERULAR FILTR. RATE CALC 101.0 mL/min (>90); GLUCOSE,RANDOM 82.0 mg/dL (70-105); SODIUM SERUM 141.0 mmol/L (136-145); UREA NITROGEN, BLOOD 17.0 mg/dL (7-18)
[2025-07-21 07:30] VITALS: O2SAT 100
[2025-07-21 08:00] VITALS: BP 124/71; PULSE 45; RESP 17; TEMP 97.8
[2025-07-21 12:00] VITALS: BP 122/69; PULSE 49; RESP 18; TEMP 98.1
--- NOTE | 2025-07-21 12:32 | HMCIMG ---
EXAM: CR Abdomen, 2 View. CLINICAL HISTORY: Ileus vs Small bowel obstruction COMPARISON: CT abdomen and pelvis dated 07/19/2025 FINDINGS: BOWEL: Mild dilation of the visualized small bowel loops measuring up to 3 cm. The large bowel is within normal limits. PERITONEUM/SOFT TISSUES: No free air evident. No pathologic appearing calcification. BONES: No aggressive appearing osseous lesion seen. IMPRESSION: Mild dilation of the small bowel measuring up to 3 cm in the central abdomen, mildly improved since the prior CT study (within the limitations of cross-modality comparison). No pneumoperitoneum. Advise follow-up abdominal radiograph. /[place]
[2025-07-21] MEDS ORDERED: POLY17PO4 PO (12:36)
--- NOTE | 2025-07-21 12:40 | DS ---
Discharge Summary Hospital Course Summary: This is a 34-year-old male with no significant past medical history and past surgical history of cholecystectomy who presented to the ED with a 1 day history of generalized abdominal pain, nausea, and nonbloody diarrhea. Symptoms began after eating ground beef, rice, and beans, followed by 2 episodes of vomiting and approximately 6 episodes of loose stools. He also reported cramp like abdominal pain. He denied fever, chills, hematemesis, hematochezia, chest pain, shortness of breath, sick contacts, or recent travel. Vital signs were stable on presentation. Laboratory evaluation revealed mild neutrophilia with otherwise unremarkable CBC and BNP. Influenza and COVID testing was negative. CT scan of abdomen pelvis without contrast showed mildly dilated, fluid-filled small bowel loops measuring up to 3 cm without a clear transition point. Large bowel loops were normal in caliber. Findings are suggestive of mild acute enteritis versus ileus, with early small bowel obstruction not entirely excluded. No pneumatosis or bowel perforation was identified. Compared to prior imaging from 05/02/2024, there was interval dilation of small bowel loops. The patient was treated conservatively with IV fluids, antiemetics, and analgesia. General surgery was consulted and the patient was monitored with clinical improvement. He tolerated advancement of diet and remained hemodynamically stable with resolution of symptoms. A repeat KUB was performed the following day which showed dilated small bowel loops at 3 cm without air- fluid levels which was mildly improved compared to prior CT. The patient is being discharged home in stable condition. He may resume a regular diet and activity as tolerated. He was advised to take MiraLax as needed for constipation and to use probiotic supplements, including yogurt in his diet. Consult avoid spicy foods, raw or undercooked meats and to maintain proper hand hygiene to prevent food contamination. Patient was instructed to follow up with his PCP within 2-3 days and to return to ED for worsening abdominal pain, persistent vomiting, unable to tolerate oral intake, fever on any concerning symptoms. Solicitor Patent(s): Dr. NICOLE, General Surgeon CONSULT NOTE: Consulting physician:Dr Koehler Consulting service: General surgery Reason for consultation: Small bowel obstruction History of present illness: This is a 29-year-old with a medical history listed below that has been consulted to surgery after presenting to the hospital with generalized abdominal pain nausea and vomiting that began yesterday. Patient had reported significant cramp like sensation with similar episodes over the last four years. Patient underwent colonoscopy one year prior with no acute findings. Upon initial workup imaging performed and concerns for small bowel obstruction versus enteritis noted and surgical team consulted. At time of exam patient resting comfortably in room currently NPO. No abdominal pain reported. Patient has multiple bowel movements and flatus. No nausea or vomiting reported at this time Medical history: Surgical history: Cholecystectomy Review of systems: General: No Fever, No Chills, No Night Sweats, No Fatigue, No Malaise, No Appetite, No Other HEENT: No Head Aches, No Visual Changes, No Eye Pain, No Ear Pain, No Dysphasia, No Sinus Congestion, No Post Nasal Drip, No Sore Throat, No Other Pulmonary: No Dyspnea, No Cough, No Pleuritic Chest Pain, No Other Cardiovascular: No: Chest Pain, Palpitations, Orthopnea, Paroxysmal No Dyspnea, Edema, Lt Headedness, Other Gastrointestinal: No: Nausea, Vomiting, Diarrhea, Constipation, Melena, Hematochezia, Other Genitourinary: No Dysuria, No Frequency, No Incontinence, No Hematuria, No Retention, No Other Musculoskeletal: No: other, neck pain, shoulder pain, arm pain, back pain, hand pain, leg pain, foot pain Skin: No Urticaria, No Rash, No Other Neurological: No: Weakness, Numbness, Incoordination, Change in speech, Confusion, Seizures, Other Physical exam: General: Awake alert and oriented Heart: Regular rate and rhythm} Lungs: Clear to auscultation no distress Abdomen: [Soft, nontender, nondistended Assessment: This is a 34-year-old male with likely enteritis versus obstruction Plan: From surgical standpoint patient can be started on clear liquid diet and advanced as tolerated No immediate plans for surgical intervention Possible repeat KUB tomorrow if distention noted after commencement of diet Dr Nicole to be updated in patient's status and surgical team to be updated with any further acute events Surgical case has been discussed with my supervising physician in the above plan was formulated and agreed upon Supervising physicians evaluation the patient be done within next 24 hours We appreciate the hospitalist team for us to participate in patient's care. Greater than 55 minutes of time spent patient, reviewing chart, working on documentation ASIF THOMPSON Jr. [facility] Jul 20, 2025 15:50 Electronically Signed by: ASIF THOMPSON Jr., PAC, [place]07/20/25 1550 Electronically Co-Signed by: Procedure(s): PATIENT: VICKIE HUSAIN MR#: [id number] : 1990 SEX: M AGE: 34 LOCATION: [facility] ORDER 35 STATUS: REG REPORT#: [id number] SERVICE 34 REASON: ABD PAIN; HX OF SBO ORDERING PHYSICIAN: SHAUN CABEZAS MD PROCEDURE: ABD PEL WO - CT ABDOMEN/PELVIS W/O CONTRAST EXAM: CT Abdomen and Pelvis without IV contrast CLINICAL HISTORY: Abdominal pain. History of small bowel obstruction. TECHNIQUE: Thin collimated axial CT images of the abdomen and pelvis were obtained, with sagittal and coronal reformatted images also submitted. A CT scan is done according to ALARA (As Low As Reasonably Achievable). CONTRAST: None. COMPARISON: CT abdominal pelvis dated 05/02/2024. FINDINGS: The included lungs are clear. Status post cholecystectomy. No focal abnormality within the liver, pancreas, spleen, adrenals, or kidneys. The urinary bladder is suboptimally distended and grossly unremarkable. The prostate is within normal limits. Mildly dilated and fluid-filled small bowel loops measuring up to 3 cm in diameter; no obvious zone of transition is evident. The large bowel loops are normal in caliber with trace fluid and fecal contents within. Remarkable appendix. Limited evaluation of the abdominal vessels due to the lack of intravenous contrast. No abdominal aortic aneurysm is evident. No pathologic lymphadenopathy in the abdomen or pelvis. No ascites or pneumoperitoneum. No acute bony abnormality is evident. Mild degenerative osseous changes. Tiny, uncomplicated, fat-containing umbilical hernia. IMPRESSIONS: Mildly dilated and fluid-filled small bowel loops measuring up to 3 cm in diameter; no obvious zone of transition is evident. The large bowel loops are normal in caliber with trace fluid and fecal contents within. The differentials could be mild acute enteritis or ileus; the possibility of early changes of small bowel obstruction cannot be excluded at this time. Further evaluation with a barium follow-through study may be done if there is a clinical suspicion of bowel obstruction. No pneumatosis or bowel perforation is evident. Compared to the previous CT abdomen and pelvis dated 05/02/2024, there is interval dilatation of the small bowel loops. /[place] DICTATED BY: NATAN DAVILA Jr., MD DATE: 07/20/25211 ELECTRONICALLY SIGNED BY: NATAN DAVILA Jr., MD DATE: 07/20/25211 PATIENT: VICKIE HUSAIN MR#: [id number] : 1990 SEX: M AGE: 34 LOCATION: [facility] ORDER 230 STATUS: ADM IN REPORT#: [id number] SERVICE 0700 REASON: Ileus vs Small bowel obstruction ORDERING PHYSICIAN: DAKOTA LEBRON MD PROCEDURE: ABD 1VW - ABD 1VW EXAM: CR Abdomen, 2 View. CLINICAL HISTORY: Ileus vs Small bowel obstruction COMPARISON: CT abdomen and pelvis dated 07/19/2025 FINDINGS: BOWEL: Mild dilation of the visualized small bowel loops measuring up to 3 cm. The large bowel is within normal limits. PERITONEUM/SOFT TISSUES: No free air evident. No pathologic appearing calcification. BONES: No aggressive appearing osseous lesion seen. IMPRESSION: Mild dilation of the small bowel measuring up to 3 cm in the central abdomen, mildly improved since the prior CT study (within the limitations of cross-modality comparison). No pneumoperitoneum. Advise follow-up abdominal radiograph. /[place] DICTATED BY: NATAN DAVILA Jr., MD DATE: 07/21/251330 ELECTRONICALLY SIGNED BY: NATAN DAVILA Jr., MD DATE: 07/21/251330 Assessment/Plan: ASSESSMENT: Small bowel obstruction, ruled out Acute non infectious gastroenteritis, resolved Acute mild dehydration, resolved History of laparoscopic cholecystectomy in 2018 Discharge Instructions: ADMISSION DATE : 07/19/2025 DISCHARGE DATE: 07/21/2024 DISPOSITION : Home CONDITION : Stable SCHOOL PSYCHOMETRIST(S) : Dr. Nicole FOLLOW UP APPOINTMENT(S) : f/u with PCP in one 2-3 days PROCEDURES: IMAGING (S) : report attached to summary MICROBIOLOGY : report attached to summary ACTIVITY : ad asaf HOME MEDICATIONS : Continued Home Medications: Active Scripts Polyethylene Glycol 3350 (Miralax) 17 Gram Powd.pack, 1 PACKET PO DAILY PRN for PRN for 30 Days, #30 PACKET 0 Refills dissolve in water Prov:SARTHAK MENDOZA MD 07/21/25 Discontinued Scripts Lactobacillus Combination No.4 (Probiotic) 3 Billion Cell Capsule, 1 EACH PO DAILY, #30 CAP Prov:RAN CDI MD 09/30/23 Docusate Sodium (Colace Liquid 100Mg/10Ml) 50 Mg/5 Ml Liq, 150 MG PO Q12H, #300 ML Prov:RAN CID MD 09/30/23 New Medications: Polyethylene Glycol 3350 (Miralax) 17 Gram Powd.pack 1 PACKET PO DAILY PRN for PRN for 30 Days, #30 PACKET 0 Refills dissolve in water Time spent arranging discharge: 1-30 minutes ATTESTATION BY PHYSICIAN I have seen and examined the patient. I reviewed the documentation, medical decision making, and treatment plan as noted by the resident physician above. I agree with the findings and plan of care. GONZALEZ KOEHLER MD, HARSHAVARDHA MD Jul 21, 2025 12:40
--- NOTE | 2025-07-21 15:32 | NUR ---
DISCHARGE PIV DC'D PATIENT INFORMED OF MIRALAX SENT TO PHARMACY. ALL QUESTIONS ANSWERED PRIOR TO DISCHARGE. PATIENT CURRENTLY WAITING ON TO PROCESS IMPROVEMENT SPECIALIST IN 20 MINUTES.
[2025-07-22 05:11] LABS: C DIFFICILE TOXIN A/B Not Detected (Not Detected); ENTEROAGGREGATIVE ECOLI Not Detected (Not Detected); GIARDIA LAMBLIA Not Detected (Not Detected); PLESIOMONAS SHIGELOIDES Not Detected (Not Detected); SAPOVIRUS Detected (Not Detected); SHIGELLA/ENTEROINVASIVE E COLI Not Detected (Not Detected); VIBRIO Not Detected (Not Detected); VIBRIO CHOLERAE Not Detected (Not Detected)
== END 2025-07-21 15:45 | disposition home or self-care (01) ==
LOC: EDH 21:24 → EDHIP 07-20 02:30 → UNDOADMOB 07-20 02:30 → 3DH 07-20 02:30 → INTOOBSV 07-20 02:30 → EDHIP 07-20 04:06 → 3DH 07-20 04:06
PROVIDERS: ADMIT Internal Medicine; ATTEND Internal Medicine
DX: K52.9 Noninfective gastroenteritis and colitis, unspecified (principal); K56.609 Unspecified intestinal obstruction, unspecified as to partial versus complete obstruction; E86.0 Dehydration; N17.9 Acute kidney failure, unspecified; Z90.49 Acquired absence of other specified parts of digestive tract; Z79.899 Other long term (current) drug therapy; Z98.890 Other specified postprocedural states; Z20.822 Contact with and (suspected) exposure to COVID-19
CPT/HCPCS: 99285; 74176; 87635; 96372; 80048 ×2; 83690; 85025 ×2; 87804 ×2; 81001; 36415 ×3; 96361 ×2; 96374; 96376 ×2; 83735; 80053; 87507; 85027; 74018; J1885; J1308 ×3; G0378; 96360